=== PATIENT | male | born 1940 | race Caucasian/White ===

== ENCOUNTER 2016-09-22 15:59 | Inpatient (IN) | payer MEDICARE, OTHER ==
[~2016-09-22] VITALS: Ht 188 cm; Wt 108.0 kg
[~2016-09-22 15:59] MED LIST: ADV25050 INHALATION; ASPI-664 PO; ATOR40TA68 PO; CARV25TA79 PO; CLON0.2T5 PO; DILT180C94 PO; DOCU-144 PO; EZET10TA3 PO; FURO40TA4 PO; HYDR-3672 PO; ISOS40TA15 PO; LOSA100T7 PO; NA P118E PR; SPIR25TA PO; TICA90TA PO
[2016-09-22] MEDS ORDERED: ASPIRIN 81 MG TAB PO ONE (17:30)
[2016-09-22] MEDS ORDERED: ALBUTEROL 0.5% (NEB) 2.5 MG/0.5 ML AMP INH STA (17:34)
[2016-09-22] MEDS ORDERED: IPRATROPIUM (NEB) 0.5 MG/2.5 ML AMP INH STA (17:34)
[2016-09-22] MEDS ORDERED: predniSONE 20 MG TAB PO STA (17:34)
[2016-09-22 17:57] LABS: BASOPHIL # 0.1 10^3/ul (0.0-0.1); BASOPHILS % 0.8 % (0.0-2.0); EOSINOPHILS # 0.5 10^3/ul (0.0-0.5); EOSINOPHILS % 5.6 % (0.0-7.0); HEMATOCRIT 42.5 % (42.0-52.0); HEMOGLOBIN 14.6 g/dl (14.0-18.0); LYMPHOCYTES # 2.2 10^3/ul (0.8-2.9); LYMPHOCYTES % 23.6 % (15.0-51.0); MEAN CORPUSCULAR HEMOGLOBIN 32.8 pg (29.0-33.0); MEAN CORPUSCULAR HGB CONC 34.4 g/dl (32.0-37.0); MEAN CORPUSCULAR VOLUME 95.5 fl (82.0-101.0); MEAN PLATELET VOLUME 10.7 fl (7.4-10.4); MONOCYTE # 0.9 10^3/ul (0.3-0.9); MONOCYTES % 9.7 % (0.0-11.0); NEUTROPHIL # 5.6 10^3/ul (1.6-7.5); NEUTROPHILS % 59.8 % (39.0-77.0); PLATELET COUNT 449 10^3/UL (140-415); RED BLOOD COUNT 4.45 10^6/ul (4.70-6.10); RED CELL DISTRIBUTION WIDTH 14.9 % (11.5-14.5); WHITE BLOOD COUNT 9.4 10^3/ul (4.8-10.8)
[2016-09-22 18:00] LABS: INR 0.97; PROTIME 12.9 Sec (12.2-14.2)
[2016-09-22] MEDS ORDERED: MAGNESIUM SULFATE 2 GM/50 ML 50 ML IVPB ONE (18:00)
[2016-09-22] MEDS ORDERED: FUROSEMIDE 40 MG INJ IV ONE (18:00)
[2016-09-22 18:03] LABS: ALANINE AMINOTRANSFERASE 31 IU/L (13-69); ALBUMIN 4.2 g/dl (3.3-4.9); ALBUMIN/GLOBULIN RATIO 1.35; ALKALINE PHOSPHATASE 72 IU/L (42-121); ANION GAP 20 (8-16); ASPARTATE AMINO TRANSFERASE 22 IU/L (15-46); BILIRUBIN,INDIRECT 0.3 mg/dl (0-1.1); BILIRUBIN,TOTAL 0.3 mg/dl (0.2-1.3); BLOOD UREA NITROGEN 26 mg/dl (7-20); CARBON DIOXIDE 27 mmol/L (21-31); CHLORIDE 105 mmol/L (97-110); CREATININE 1.11 mg/dl (0.61-1.24); GLUCOSE 100 mg/dl (70-220); POTASSIUM 4.2 mmol/L (3.5-5.1); SODIUM 148 mmol/L (135-144); TOTAL PROTEIN 7.3 g/dl (6.1-8.1)
[2016-09-22] MEDS ORDERED: MIRA25TA PO (18:11)
[2016-09-22] MEDS ORDERED: CLOP75TA4 PO (18:12)
[2016-09-22] MEDS ORDERED: DIGO125T PO (18:13)
--- NOTE | 2016-09-22 18:16 | RADRPT ---
PROCEDURE: Chest x-ray CLINICAL INDICATION: Chest pain TECHNIQUE: Chest single view COMPARISON: 01/27/2009 FINDINGS: There is interval placement left chest dual lead pacemaker. Stable cardiomegaly and mild atheroscle rotic aortic calcification is seen. Is mild central venous congestion. Trace bilateral pleural eff usions are seen. There is lower lobe compressive atelectasis. IMPRESSION: 1. Cardiomegaly with mild central venous congestion and small bilateral pleural effusions. 2. Lower lobe compressive atelectasis. 3. Atherosclerotic aortic calcification. 4. Interval placement of pacemaker RPTAT: HH .Jonathan Jerome MD, MD Date Time Electronically viewed and signed by .Jonathan Jerome MD, on 09/22/2016 18:15 .W/
[2016-09-22 18:18] LABS: TROPONIN-I < 0.012 ng/ml (0.00-0.12)
[2016-09-22] MEDS ORDERED: RANO500T2 PO (18:18)
[2016-09-22 19:15] VITALS: TEMP 98.9
--- NOTE | 2016-09-22 19:36 | ERA ---
ER Documentation Chief Complaint Date/Time DATE: 09/22/16 TIME: 19:28 Chief Complaint Complains of chest pain with a pace maker that malfunctions? HPI 75-year-old man referred by his PMD for recent dizziness and palpitations. Patient had a AICD placed in the left chest many years ago and began having palpitations about 4-5 days ago and generalized dizziness with near syncopal episodes. EKG at the office revealed ventricular escape beats. Patient complains of shortness of breath for the last few days as well. He has had no fevers, no cough, no complaints of chest pain, no vomiting or diarrhea, no new medications, no headache or blurry vision. Patient denies loss of consciousness. ROS All systems reviewed and are negative except as per history of present illness. Medications Home Meds Reported Medications Ranolazine* (Ranexa*) 500 Mg Tab.sr.12h, 500 MG PO BID, TAB 09/22/16 Digoxin* (Digitek*) 125 Mcg Tablet, 0.125 MG PO DAILY, TAB 09/22/16 Clopidogrel Bisulfate* (Clopidogrel Bisulfate*) 75 Mg Tablet, 75 MG PO DAILY Y for PRN, #30 TAB 09/22/16 Mirabegron (Mybetriq) 25 Mg Tab.er.24h, 25 MG PO DAILY, TAB 09/22/16 Aspirin* (Aspirin* EC) 81 Mg Tablet.dr, 81 MG PO DAILY, TAB 09/16/15 Ticagrelor* (Brilinta*) 90 Mg Tablet, 90 MG PO BID, TAB 09/16/15 Hydralazine Hcl* (Hydralazine Hcl*) 50 Mg Tab, 50 MG PO TID, #90 TAB 09/16/15 Furosemide* (Furosemide*) 40 Mg Tablet, 40 MG PO DAILY, TAB 09/16/15 Diltiazem Hcl* (Diltiazem XT) 180 Mg Capsule.er, 180 MG PO DAILY, #30 CAP 09/16/15 Clonidine Hcl* (Clonidine Hcl*) 0.2 Mg Tablet, 0.2 MG PO DAILY, TAB 09/16/15 Carvedilol* (Carvedilol*) 25 Mg Tablet, 25 MG PO BID, #60 TAB 09/16/15 Atorvastatin* (Atorvastatin*) 40 Mg Tablet, 40 MG PO QHS, #30 TAB 09/16/15 Salmeterol Xinaf/Fluticasone* (Advair*) 250-50 Diskus Inhaler, 1 INH INHALATION BID, #1 INHALER 09/16/15 Spironolactone* (Aldactone*) 25 Mg Tablet, 25 MG PO BID, #60 TAB 09/16/15 Losartan Potassium* (Losartan Potassium*) 100 Mg Tablet, 100 MG PO DAILY, TAB 09/16/15 Isosorbide Dinitrate* (Isordil*) 40 Mg Tablet, 40 MG PO BID, TAB 09/16/15 Discontinued Reported Medications Ezetimibe* (Zetia*) 10 Mg Tablet, 10 MG PO DAILY, TAB 09/16/15 Discontinued Scripts Docusate Sodium* (Colace*) 100 Mg Capsule, 100 MG PO BID, #60 CAP Prov:RADHA CUNHA 09/16/15 Na Phos,M-B/Na Phos,Di-Ba* (Fleet* Enema) 118 Ml Enema, 118 ML TN DAILY Y for CONSTIPATION, #10 ENEMA Prov:RADHA CUNHA 09/16/15 Allergies Allergies: Coded Allergies: No Known Allergy (Verified , 09/16/15) PMhx/Soc Obesity, COPD, previous MD, congestive heart failure, hypertension, coronary artery disease, AICD placement History of Surgery: Yes (,PROSTATE SURG) Anesthesia Reaction: No Hx Neurological Disorder: No Hx Respiratory Disorders: No Hx Cardiac Disorders: Yes (OPEN HEART 02-27-2007) Hx Psychiatric Problems: No Hx Miscellaneous Medical Probl: No Hx Alcohol Use: Yes (OCCASIONALOLY) Hx Substance Use: No Hx Tobacco Use: No (QUIT 17 YEARS AGO) Smoking Status: Former smoker FmHx Family History: No diabetes Physical Exam Vitals Vital Signs Date Time Temp Pulse Resp B/P Pulse Ox O2 Delivery O2 Flow Rate FiO2 09/22/16 17:44 91 20 97 21 09/22/16 17:00 100 14 154/64 100 Nasal Cannula 2.0 09/22/16 16:03 99.2 68 20 192/74 94 Physical Exam GENERAL: Well-developed, well-nourished, well-hydrated, in no apparent distress , looks nontoxic in appearance HEENT: Moist mucous membranes, pink conjunctiva, no cervical spine tenderness or step-off deformities, no goiter, no jaundice or icterus, extraocular movements intact without pain. NEURO: Alert and oriented 3, cranial nerves II through XII intact bilaterally, pupils equal round reactive to light, no focal deficits or facial asymmetry, sensation intact distally Strength 5/5 in upper and lower extremities bilaterally CARDIAC: Regular rate and rhythm, no murmurs rubs or gallops LUNGS: Bilateral crackles poor breath sounds, scattered wheezes, no stridor ABDOMEN: Soft nontender, no guarding, no rigidity, no rebound, no psoas sign no obturator sign. Normoactive bowel sounds SKIN: Warm and dry to touch, no abrasions, contusions, or hematomas, no lacerations, no ecchymosis, no target lesions, and without ulcers EXTREMITIES: No clubbing cyanosis, 3+ pitting edema in the lower extremities bilaterally, calves are bilaterally symmetrical, no Homans sign, no popliteal cord sign. Distal pulses equal and bilateral PSYCH: Normal affect without agitation or irritability Result Diagram: 09/22/16 1705 09/22/16 1705 Results 24 hrs Laboratory Tests Test 09/22/16 17:05 White Blood Count 9.410^3/ul Red Blood Count 4.4510^6/ul Hemoglobin 14.6g/dl Hematocrit 42.5% Mean Corpuscular Volume 95.5fl Mean Corpuscular Hemoglobin 32.8pg Mean Corpuscular Hemoglobin Concent 34.4g/dl Red Cell Distribution Width 14.9% Platelet Count 38329^3/UL Mean Platelet Volume 10.7fl Neutrophils % 59.8% Lymphocytes % 23.6% Monocytes % 9.7% Eosinophils % 5.6% Basophils % 0.8% Nucleated Red Blood Cells % 0.0/100WBC Neutrophils # 5.610^3/ul Lymphocytes # 2.210^3/ul Monocytes # 0.910^3/ul Eosinophils # 0.510^3/ul Basophils # 0.110^3/ul Nucleated Red Blood Cells # 0.010^3/ul Prothrombin Time 12.9Sec Prothrombin Time Ratio 1.0 INR International Normalized Ratio 0.97 Sodium Level 148mmol/L Potassium Level 4.2mmol/L Chloride Level 105mmol/L Carbon Dioxide Level 27mmol/L Anion Gap 20 Blood Urea Nitrogen 26mg/dl Creatinine 1.11mg/dl Glucose Level 100mg/dl Calcium Level 9.0mg/dl Total Bilirubin 0.3mg/dl Direct Bilirubin 0.00mg/dl Indirect Bilirubin 0.3mg/dl Aspartate Amino Transf (AST/SGOT) 22IU/L Alanine Aminotransferase (ALT/SGPT) 31IU/L Alkaline Phosphatase 72IU/L Troponin I < 0.012ng/ml B-Type Natriuretic Peptide 2170PG/ML Total Protein 7.3g/dl Albumin 4.2g/dl Globulin 3.10g/dl Albumin/Globulin Ratio 1.35 Lipase 130U/L Current Medications Medications (Trade) Dose Ordered Sig/Mauricio Route PRN Reason Start Time Stop Time Status Last Admin Dose Admin Aspirin (Aspirin) 324 mg ONCE ONCE PO 09/22/16 17:30 09/22/16 17:32 DC 09/22/16 19:05 Furosemide (Lasix) 60 mg ONCE ONCE IV 09/22/16 18:00 09/22/16 18:01 DC 09/22/16 19:05 Albuterol (Proventil 0.5% (Neb)) 10 mg ONCE STAT INH 09/22/16 17:34 09/22/16 17:35 DC 09/22/16 17:44 Ipratropium Bruni (Atrovent 0.02% (Neb)) 1 mg ONCE STAT INH 09/22/16 17:34 09/22/16 17:35 DC 09/22/16 17:44 Prednisone 60 mg 60 mg ONCE STAT PO 09/22/16 17:34 09/22/16 17:35 DC 09/22/16 19:05 Magnesium Sulfate (Magnesium Sulfate 2 Gm/50 ml) 50 ml @ 25 mls/hr ONCE ONCE IVPB 09/22/16 18:00 09/22/16 19:59 09/22/16 19:04 Procedures/[facility] IV line was established patient was placed on tube test technician rhythm strip revealed a sinus rhythm at about 70 bpm. Patient was afebrile. I reviewed the EKG performed in the office reveals a paced rhythm with ventricular escape beats consistent with patient's history of palpitations and dizziness. I treated him here with aspirin 324 mg p.o., furosemide 60 mg IV 1 for decompensated heart failure and albuterol 10 mg via nebulizer for COPD. Patient also received prednisone 60 mg p.o. and magnesium 2 g IV 1. EKG performed here in the ED revealed a paced rhythm at 72 bpm, left axis deviation with intraventricular conduction delay at 112 ms, no concerning ST elevations or depressions noted. One view chest x-ray performed, read by me revealed AICD in the left chest with cardiomegaly and bilateral pulmonary vascular congestion, no acute infiltrates, no pneumothorax. CHF. CBC was unremarkable, electrolytes revealed a BUN/creatinine of 26/1.1, liver function tests normal, troponin negative, BNP elevated at over 2000. Cardiac critical Care: Time: 38 minutes, this was time separate from other billable procedures. Treatments/Evaluations: Close monitoring and treatment of unstable vital signs, cardiorespiratory, and neurologic status, while maintaining tight balance of fluid, respiratory, and cardiac interventions. [facility] AICD ict support technicians has been contacted patient will be admitted to telemetry setting for continued medical management cardiology consultation. Departure Diagnosis: Primary Impression: AICD malfunction Qualified Code: T82.199A - AICD malfunction, initial encounter Additional Impressions: Cardiac dysrhythmia Qualified Code: I49.9 - Cardiac arrhythmia, unspecified cardiac arrhythmia type CHF (congestive heart failure) Qualified Code: I50.21 - Acute systolic congestive heart failure COPD (chronic obstructive pulmonary disease) Qualified Code: J44.1 - Chronic obstructive pulmonary disease with acute exacerbation Hypertension Qualified Code: I10 - Essential hypertension Condition: JINA Spain MD Sep 22, 2016 19:36
--- NOTE | 2016-09-22 20:34 | RADRPT ---
PROCEDURE: US DVT. CLINICAL INDICATION: Bilateral lower extremity pain and swelling. TECHNIQUE: Multiple longitudinal and transverse images of the bilateral lower extremity veins were obtained with umana scale and color Doppler imaging. 2D grayscale measurements with compression, co cordell Doppler flow, and augmentation was performed. The calf veins were interrogated as well. COMPARISON: No prior studies are available for comparison. FINDINGS: The bilateral common femoral, superficial femoral and popliteal veins are normally compressible thro ughout. Color flow demonstrates normal filling of the vessel. Normal waveforms are visualized and there is normal response to augmentation. The calf veins are visualized and are equally unremarkabl e. IMPRESSION: 1. No evidence of a deep vein thrombosis involving either lower extremity. RPTAT: HH .Ana Maria Zapata MD, Date Time Electronically viewed and signed by .Ana Maria Zapata MD, MD on 09/22/2016 20:34 .N/
[2016-09-22 21:24] VITALS: BP 139/65; RESP 16
[2016-09-22 21:34] VITALS: PULSE 91
[2016-09-22 21:53] VITALS: Ht 188 cm; Wt 108.0 kg
[2016-09-22] MEDS ORDERED: POLYETHYLENE GLYCOL 17 GM PACKET PO PRN (23:30)
[2016-09-22 23:45] LABS: IRON 49 ug/dl (35-150)
[2016-09-22 23:46] LABS: MAGNESIUM 2.2 mg/dl (1.7-2.5)
[2016-09-22 23:54] LABS: TOTAL IRON BINDING CAPACITY 277 ug/dl (241-421)
[2016-09-22 23:59] VITALS: BP 151/69; RESP 18
[2016-09-23] VITALS (9 sets, daily range): BP systolic 125–134; BP diastolic 58–68; PULSE 74–80; RESP 16–19
[2016-09-23 00:21] LABS: THYROID STIMULATING HORMONE 2.98 MIU/L (0.465-4.680)
[2016-09-23] MEDS ORDERED: ACCU-CHEK XX SCH ×2 (02:00)
[2016-09-23] MEDS ORDERED: FUROSEMIDE 40 MG TAB PO SCH (06:00)
[2016-09-23 06:53] LABS: CALCIUM 9.7 mg/dl (8.4-10.2); CREATININE 1.2 mg/dl (0.61-1.24); POTASSIUM 4.8 mmol/L (3.5-5.1)
[2016-09-23] MEDS: INSULIN ASPART [NOVOLOG] 3 ML PEN SC SCH ×3 (07:55→17:55)
[2016-09-23] MEDS ORDERED: RANOLAZINE (SR) 500 MG TAB PO SCH (09:00)
[2016-09-23] MEDS ORDERED: TICAGRELOR 90 MG TABLET PO SCH (09:00)
[2016-09-23] MEDS ORDERED: LOSARTAN 50 MG TAB PO SCH (09:00)
[2016-09-23] MEDS ORDERED: NON-FORMULARY/PATIENT OWN MED (Mirabegron (Mybetriq) 25 MG) XX SCH (09:00)
[2016-09-23] MEDS ORDERED: ASPIRIN (EC) 81 MG TAB PO SCH (09:00)
[2016-09-23] MEDS ORDERED: ISOSORBIDE DINITRATE (SA) 40 MG TAB PO SCH ×2 (09:00)
[2016-09-23] MEDS ORDERED: SPIRONOLACTONE 25 MG TAB PO SCH (09:00)
[2016-09-23] MEDS ORDERED: DILTIAZEM (CD) 180 MG CAP PO SCH (09:00)
[2016-09-23] MEDS ORDERED: SALMETEROL/FLUTICASONE 250/50 INHA INH SCH (09:00)
--- NOTE | 2016-09-23 09:22 | HP ---
Date/Time of Note Date/Time of Note DATE: 09/23/16 TIME: 09:16 Assessment/Plan VTE Prophylaxis VTE Prophylaxis Intervention: ambulation, anti-embolic stocking VTE Contraindication Reason: peripheral vascular disease Lines/Catheters IV Catheter Type (from Nrsg): [place]ine [employer] Central line still needed: No Urinary Cath still in place: No Reason Cath still needed: urinary retention Assessment/Plan Assessment/Plan AICD malfunction-Bigeminies, exit blocks and interference ofthe st with the contractions by tracing; awaiting cardio and electrophysiologists evaluation Qualified Code: T82.199A - AICD malfunction, initial encounter Additional Impressions: Cardiac dysrhythmia Qualified Code: I49.9 - Cardiac arrhythmia, unspecified cardiac arrhythmia type CHF (congestive heart failure) Qualified Code: I50.21 - Acute systolic congestive heart failure COPD (chronic obstructive pulmonary disease) Qualified Code: J44.1 - Chronic obstructive pulmonary disease with acute exacerbation Hypertension Qualified Code: I10 - Essential hypertension TIA DM type 2 Pulmonary HTN S/P bladder tumor resection() Obesity Dyslipidemia COPD Snoring with apnea LBP Mild cognitive impairment Constipation ALISSON Hx of cellulitis with scaring of left leg below the knee. Condition: Fair Cont'd Hospitalization Reason: as above. HPI/ROS Admit Date/Time Admit Date/Time Sep 22, 2016 at 18:08 Hx of Present Illness SOB, getting tired easily with increased edema of legs. When I walk I feel am am leaning toward right side. ROS Constitutional: diaphoresis, fatigue, improved, nausea, poor po, weight change , No chills, No disoriented, No febrile, No no complaints, No other Eyes: No discharge, No no complaints, No other, No pain, No redness, No visual change ENT: No bleeding, No congestion, No discharge, No dysphagia, No no complaints, No other, No pain, No sore throat Respiratory: cough, pain, shortness of breath, sputum, wheezing Cardiovascular: chest pain, edema, lightheadedness, orthopenea, palpitations, paroxysmal nocturnal dyspnea, No no complaints, No other Gastrointestinal: constipation, decreased appetite, flatus, nausea, passing stool, No blood, No diarrhea, No no complaints, No other, No pain, No vomiting Genitourinary: dysuria, flank pain, No bleeding, No discharge, No hematuria, No no complaints, No other Musculoskeletal: back pain, bone/joint pain, neck pain, restricted range of motion, No no complaints, No other, No swelling Skin: No bruising, No erythema, No laceration, No no complaints, No other, No pruritis, No rash, No skin lesions Neurologic: confusion, dizziness, No focal-weakness, No headache, No no complaints, No other, No seizure, No syncope Endocrine: polydypsia, temp intolerance, weight change PMH/Family/Social Past Medical History Medical History: angina, congestive heart failure, coronary artery disease, diabetes, diverticulitis, GERD, GI bleed, high cholesterol, hypertension, urinary tract infection Family History Significant Family History: heart disease, COPD, diabetes, hypertension Social History Alcohol Use: none Smoking Status: Former smoker Drug Use: none Exam/Review of Systems Vital Signs Vitals Vital Signs Date Time Temp Pulse Resp B/P Pulse Ox O2 Delivery O2 Flow Rate FiO2 09/23/16 07:22 98.0 69 19 133/68 98 09/22/16 19:15 Nasal Cannula 2.0 09/22/16 17:44 21 Intake and Output 09/22/16 09/22/16 09/23/16 15:00 23:00 07:00 Intake Total 200 ml Balance 200 ml Exam Constitutional: alert, distress, oriented, well developed, No frail, No non-verbal, No other Psych: anxiety, confusion, depression, No nl mood/affect, No no complaints, No other, No suicidal Head: atraumatic, No hematomas, No lacerations, No normocephalic, No other Eyes: EOMI, PERRL, nl lids, No fundi, disc, No icteric, No nl conjunctiva, No nl sclera, No other ENMT: nl nasal mucosa & septum, tympanic membranes Neck: bruits, jvd, nuchal rigidity, No masses, No non-tender, No other, No supple, No thyromegaly Respiratory: congested cough, diminished breath sounds, intercostal retraction , No clear to auscultation, No crackles/rales, No labored breathing, No normal air movement, No other, No respirations, No tactile fremitus, No wheezing Cardiovascular: bruits, edema, irregular rhythm, jugular venous distention (JVD ), murmurs/extra sounds, nl pulses, regular rate and rhythm (irregular), systolic murmur, No S3, No S4, No diastolic murmur, No gallop, No other, No rub Gastrointestinal: hepatomegaly, nl liver, spleen, rebound or guarding, soft, surgical scars, No ascites, No bowel sounds, No distended, No firm, No mass, No non-tender, No other, No splenomegaly, No tender Genitourinary - Male: CVA tenderness, No discharge, No nl penis, No nl scrotum , No other Genitourinary - Female: CVA tenderness Musculoskeletal: joint tenderness Extremities: calf tenderness, cyanosis, pitting pedal edema Neurological: STICK WELDER II-XII intact, confused, nl mental status, numbness, reflexes Skin: diaphoresis Labs Result Diagram: 09/22/16 1705 09/23/16 0538 Medications Medications Current Medications Diagnostic Test (Pha) (Accu-Chek) 1 ea XX ; Start 09/23/16 at 02:00 Polyethylene Glycol (Miralax) 17 gm BID PRN PO CONSTIPATION; Start 09/22/16 at 23:30 Aspirin (Halfprin) 81 mg DAILY PO ; Start 09/23/16 at 09:00 Atorvastatin Calcium (Lipitor) 40 mg QHS PO ; Start 09/23/16 at 21:00 Carvedilol (Coreg) 25 mg BID PO ; Start 09/23/16 at 09:00 Clonidine (Catapres) 0.2 mg DAILY PO ; Start 09/23/16 at 09:00 Digoxin (Digoxin) 0.125 mg DAILY@13 PO ; Start 09/23/16 at 13:00 Diltiazem HCl (Cardizem Cd) 180 mg DAILY PO ; Start 09/23/16 at 09:00 Furosemide (Lasix) 40 mg DAILY@06 PO Last administered on 09/23/16t 05:17; Admin Dose 40 MG; Start 09/23/16 at 06:00 Hydralazine HCl (Apresoline) 50 mg TID PO ; Start 09/23/16 at 09:00 Losartan Potassium (Cozaar) 100 mg DAILY PO ; Start 09/23/16 at 09:00 Ranolazine (Ranexa) 500 mg BID PO ; Start 09/23/16 at 09:00 Salmeterol Xinafoate/ Fluticasone (Advair 250/50 Diskus) 1 inh BID INH ; Start 09/23/16 at 09:00 Spironolactone (Aldactone) 25 mg BID PO ; Start 09/23/16 at 09:00 Ticagrelor (Brilinta) 90 mg BID PO ; Start 09/23/16 at 09:00 Miscellaneous Information 25 mg DAILY XX ; Start 09/23/16 at 09:00; Status UNV Isosorbide Dinitrate (Isordil (Sa)) 40 mg BID PO ; Start 09/23/16 at 09:00; Status UNV LEO PARTIDA MD Sep 23, 2016 09:22
[2016-09-23] MEDS ORDERED: DIGOXIN 0.125 MG TAB PO SCH (13:00)
--- NOTE | 2016-09-23 17:26 | CONS ---
Date/Time of Note Date/Time of Note DATE: 09/23/16 TIME: 17:16 Assessment/Plan Assessment/Plan Chief Complaint/Hosp Course Assessment: Acute on chronic combined systolic and diastolic heart failure - improved with diuresis Ischemic cardiomyopathy, LVEF previously reported to be 40-45% Status post VIOLIN MECHANIC-D implantation ([employer]) - interrogated 09/22/2016 with normal function Coronary artery disease, status post coronary artery bypass graft surgery Hypertension Dyslipidemia Chronic obstructive pulmonary disease Recommendations: -EKG, telemetry, and ICD interrogation report reviewed - normal device function -continue current medication regimen -no further cardiac work up at this time, follow up with outpatient carpenter refrigerator (Dr. Wooten) Problems: Consultation Date/Type/Reason Admit Date/Time Sep 22, 2016 at 18:08 Type of Consultation: Cardiology Reason for Consultation evaluated ICD function Hx of Present Illness The patient is a 75 year-old male who presented with dizziness and palpitations , with concern for malfunction of his [employer] VIOLIN MECHANIC-D device. His device has been interrogated with normal function. He was also noted to be in decompensated heart failure. He is status post diuresis with IV Lasix and now feels better. He denies chest pain or shortness of breath. 14 point review of systems negative other than per HPI. Past Medical History Chronic combined systolic and diastolic heart failure Ischemic cardiomyopathy, LVEF previously reported to be 40-45% Status post VIOLIN MECHANIC-D implantation ([employer]) Coronary artery disease, status post coronary artery bypass graft surgery Hypertension Dyslipidemia Chronic obstructive pulmonary disease Past Surgical History Past Surgical Hx: coronary bypass surgery, other (bladder tumor resection) Family History Significant Family History: no pertinent family hx Social History Alcohol Use: none Smoking Status: Former smoker Drug Use: none Exam/Review of Systems Vital Signs Vitals Vital Signs Date Time Temp Pulse Resp B/P Pulse Ox O2 Delivery O2 Flow Rate FiO2 09/23/16 16:15 74 09/23/16 15:22 98.2 19 134/64 93 09/22/16 19:15 Nasal Cannula 2.0 09/22/16 17:44 21 Intake and Output 09/22/16 09/22/16 09/23/16 15:00 23:00 07:00 Intake Total 200 ml Balance 200 ml Exam Constitutional: alert, well developed Psych: nl mood/affect, no complaints Head: atraumatic, normocephalic Eyes: nl conjunctiva, nl lids ENMT: nl external ears & nose, nl nasal mucosa & septum Neck: non-tender, supple, No jvd Respiratory: clear to auscultation, normal air movement Cardiovascular: regular rate and rhythm Gastrointestinal: non-tender, soft Musculoskeletal: nl extremities to inspection Extremities: edema (bilateral lower extremity), No clubbing, No cyanosis Neurological: nl mental status, nl speech Skin: nl turgor Results Result Diagram: 09/22/16 1705 09/23/16 0538 Results 24 hrs Laboratory Tests Test 09/23/16 04:28 09/23/16 05:38 09/23/16 08:19 09/23/16 12:02 Bedside Glucose 146 128 116 Sodium Level 147 H Potassium Level 4.8 Chloride Level 100 Carbon Dioxide Level 29 Anion Gap 23 H Blood Urea Nitrogen 29 H Creatinine 1.20 Glucose Level 152 Hemoglobin A1c 6.0 H Calcium Level 9.7 Medications Medications Current Medications Diagnostic Test (Pha) (Accu-Chek) 1 ea 02 XX ; Start 09/23/16 at 02:00 Polyethylene Glycol (Miralax) 17 gm BID PRN PO CONSTIPATION Last administered on 09/23/16 13:57; Admin Dose 17 GM; Start 09/22/16 at 23:30 Aspirin (Halfprin) 81 mg DAILY PO Last administered on 09/23/16 09:31; Admin Dose 81 MG; Start 09/23/16 at 09:00 Atorvastatin Calcium (Lipitor) 40 mg QHS PO ; Start 09/23/16 at 21:00 Carvedilol (Coreg) 25 mg BID PO Last administered on 09/23/16 09:31; Admin Dose 25 MG; Start 09/23/16 at 09:00 Clonidine (Catapres) 0.2 mg DAILY PO ; Start 09/23/16 at 09:00 Digoxin (Digoxin) 0.125 mg DAILY@13 PO ; Start 09/23/16 at 13:00 Diltiazem HCl (Cardizem Cd) 180 mg DAILY PO ; Start 09/23/16 at 09:00 Furosemide (Lasix) 40 mg DAILY@06 PO Last administered on 09/23/16 05:17; Admin Dose 40 MG; Start 09/23/16 at 06:00 Hydralazine HCl (Apresoline) 50 mg TID PO ; Start 09/23/16 at 09:00 Losartan Potassium (Cozaar) 100 mg DAILY PO ; Start 09/23/16 at 09:00 Ranolazine (Ranexa) 500 mg BID PO ; Start 09/23/16 at 09:00 Salmeterol Xinafoate/ Fluticasone (Advair 250/50 Diskus) 1 inh BID INH Last administered on 09/23/16t 09:33; Admin Dose 1 INH; Start 09/23/16 at 09:00 Spironolactone (Aldactone) 25 mg BID PO ; Start 09/23/16 at 09:00 Ticagrelor (Brilinta) 90 mg BID PO ; Start 09/23/16 at 09:00 Miscellaneous Information 25 mg DAILY XX ; Start 09/23/16 at 09:00; Status UNV Isosorbide Dinitrate (Isordil (Sa)) 40 mg BID PO ; Start 09/23/16 at 09:00; Status UNV JOSE CARLOS ORTIZ MD Sep 23, 2016 17:26
--- NOTE | 2016-09-23 18:48 | PDOCDIS ---
Discharge Instructions DIAGNOSIS Discharge Diagnosis AICD malfunction-Bigeminies, exit blocks and interference of the stimulus with deflections of the contractions by tracing; awaiting cardio and electrophysiologists evaluation Qualified Code: T82.199A - AICD malfunction, initial encounter Additional Impressions: Cardiac dysrhythmia Qualified Code: I49.9 - Cardiac arrhythmia, unspecified cardiac arrhythmia type CHF (congestive heart failure) Qualified Code: I50.21 - Acute systolic congestive heart failure COPD (chronic obstructive pulmonary disease) Qualified Code: J44.1 - Chronic obstructive pulmonary disease with acute exacerbation Hypertension Qualified Code: I10 - Essential hypertension TIA DM type 2 Pulmonary HTN S/P bladder tumor resection() Obesity Dyslipidemia COPD Snoring with apnea LBP Mild cognitive impairment Constipation ALISSON Hx of cellulitis with scaring of left leg below the knee. CHF- improved. CONDITION Patient Condition: Fair HOME CARE INSTRUCTIONS: Diet Instructions: Reduced Sodium ACTIVITY: Activity Restrictions: Slowly Increase Activity Bathing Restrictions: Shower FOLLOW UP/APPOINTMENTS Follow-up Plan in 3 days. in one week REFERRALS Other Referrals in one month. SCHOOL/WORK RELEASE May return to School/Work on: Sep 23, 2016 May return to School/Work with: LEO Wolf MD Sep 23, 2016 18:48
[2016-09-23] MEDS ORDERED: ATORVASTATIN 40 MG TAB PO SCH (21:00)
== END 2016-09-23 19:30 | disposition home or self-care (01) | DRG 314 ==
LOC: E/R 15:59 → TEL 18:08
PROVIDERS: ADMIT Family Medicine; ATTEND Family Medicine
DX: T82.199A Other mechanical complication of unspecified cardiac device, initial encounter (principal); I50.23 Acute on chronic systolic (congestive) heart failure; R06.83 Snoring; J44.9 Chronic obstructive pulmonary disease, unspecified; E11.9 Type 2 diabetes mellitus without complications; Y84.8 Other medical procedures as the cause of abnormal reaction of the patient, or of later complication, without mention of misadventure at the time of the procedure; Y92.009 Unspecified place in unspecified non-institutional (private) residence as the place of occurrence of the external cause; I11.0 Hypertensive heart disease with heart failure; I49.9 Cardiac arrhythmia, unspecified; Z86.73 Personal history of transient ischemic attack (TIA), and cerebral infarction without residual deficits; E66.9 Obesity, unspecified; Z68.30 Body mass index [BMI] 30.0-30.9, adult; E78.5 Hyperlipidemia, unspecified; K59.00 Constipation, unspecified; G47.33 Obstructive sleep apnea (adult) (pediatric); I25.10 Atherosclerotic heart disease of native coronary artery without angina pectoris; Z95.1 Presence of aortocoronary bypass graft
CPT/HCPCS: 36415; 71010; 80048; 80053; 82962; 83036; 83540; 83690; 83735; 83880; 84443; 84484; 85025; 85610; 93005; 93970; 94644; 96374; 96375; J1815; J1940; J3475; J7512